=== PATIENT | male | born 1960 | race Caucasian/White ===

== ENCOUNTER → 2016-12-05 | Outpatient (CLI) | payer OTHER ==
--- NOTE | 2016-12-08 18:26 | PCVCIMAG ---
APPROVED REPORT Exam: Stress Echocardiogram Indication: Chest pain , Dyspnea Patient Location: Echo lab Stress Nurse: Smita Jacobs RN Status: routine Ht: 5 ft 4 in HR: 84 bpm BP: 172/92 mmHg Rhythm: NSR Medical History Medical History: CAD s/p stent, Diabetes Cardiac Risk Factors: HTN, Diabetes (insulin) Previous Cardiac Procedures: PCI Pretest Chest Pain Characteristics: No chest pain Exercise History: Physically active Procedure The patient underwent an Exercise Stress Test using the Armando Protocol. Blood pressure, heart rate, and EKG were monitored. An Echocardiogram was performed by application technician in four stages in quad fashion. At peak stress, four selected images were obtained and placed side by side with resting images for comparison. Stress Test Details HR Resting HR: 84 bpmMax Heart Rate (APMHR): 164 bpm Max HR Achieved: 148 bpmTarget HR (85% APMHR): 139 bpm % of APMHR: 90 Recovery HR: 93 bpm HR response to stress: Normal HR response to stress BP Resting BP: 172/92 mmHg Max BP: 202/90 mmHg Recovery BP: 180/90 mmHg ECG Resting ECG: Sinus Rhythm, nonspecific ST-T abnormalities ST Change: Ischemic ST depression with downsloping ST changes Arrhythmia: Rare PVC Recovery ECG: Increasing ST depression 3 min into recovery Recovery Arrhythmia: None Clinical Reason for Termination: Maximal effort, Dyspnea Stress Symptoms: Chest pain, Dyspnea Exercise duration: 6 min sec Highest Stage Achieved: Stage 2: 2.5 mph at 12% grade. Exercise capacity: 7 METs Overall Exercise Capacity for Age: Poor Angina Score: Exercise-Limiting Symptoms resolved during recovery. Stress ECG Conclusion 1. SUBJECTIVELY ABNORMAL WITH DEVELOPMENT OF CHEST PAIN 2. ELECTROCARDIOGRAPHICALLY ABNORMAL WITH ST SEGMENT SHIFTS DIAGNOSTIC OF ISCHEMIA 3, LIMITED FUNCTIONAL CAPACITY Pre-Stress Echo The resting Echocardiogram showed normal left ventricular contractility with an estimated Ejection Fraction of about >55%. The resting Echocardiogram demonstrated wall motion abnormality in the apical septal,, apical inferior . Post-Stress Echo The stress Echocardiogram showed abnormal left ventricular contractility with an estimated Ejection Fraction of about 40-45%. The stress Echocardiogram demonstrated wall motion abnormality in the septal, inferiorwalls with mild dilitation of the apex . Conclusion Clinical Response: Ischemic Exercise Capacity: Below Average Stress ECG Response: Ischemic Stress Echo Images: Ischemic 1. INTERMEDIATE RISK STUDY BASED ON ABNORMAL WALL MOTION AT REST THAT PARTIALLY IMPROVED AT STRESS. THESE MAY RELATED TO PRIOR STENT OR SIDEBRANCH DISEASE. CLINICAL CORRELATION SUGGESTED <Conclusion> 1. INTERMEDIATE RISK STUDY BASED ON ABNORMAL WALL MOTION AT REST THAT PARTIALLY IMPROVED AT STRESS. THESE MAY RELATED TO PRIOR STENT OR SIDEBRANCH DISEASE. CLINICAL CORRELATION SUGGESTED
== END | disposition home or self-care (01) ==
LOC: PCVCIMAG 15:31
PROVIDERS: ATTEND Internal Medicine
DX: I25.89 Other forms of chronic ischemic heart disease (principal); R94.31 Abnormal electrocardiogram [ECG] [EKG]; I49.3 Ventricular premature depolarization; E78.5 Hyperlipidemia, unspecified; I25.10 Atherosclerotic heart disease of native coronary artery without angina pectoris; I10 Essential (primary) hypertension; E11.9 Type 2 diabetes mellitus without complications; Z79.4 Long term (current) use of insulin; Z95.5 Presence of coronary angioplasty implant and graft
CPT/HCPCS: 80061; 93325; 93351